=== PATIENT | female | born 1970 | race Caucasian/White ===

== ENCOUNTER 2017-01-17 13:01 | Inpatient (IN) | payer BC ==
[~2017-01-17] VITALS: Ht 172.7 cm; Wt 120.5 kg
--- NOTE | ~2017-01-17 | OP ---
PATIENT NAME: DEN PABLO MEDICAL RECORD: [id number] :74 LOCATION:[id number] ADMISSION DATE:01/17/17 SURGEON: JULIANO FRANCES MD DATE OF OPERATION: 01/18/2017 PREOPERATIVE DIAGNOSES: Acute appendicitis with localized peritonitis. POSTOPERATIVE DIAGNOSES: Acute appendicitis with localized peritonitis. PROCEDURE: Laparoscopic appendectomy. SURGEON: Juliano Frances MD REPORT OF PROCEDURE: The patient's abdomen was prepped and draped in sterile fashion. A cutdown was made on the superior aspect of the umbilicus, 0 Vicryls were placed in the fascia bilaterally and the fascia was incised with 15-blade. I then bluntly entered the peritoneal cavity and placed a 12-mm Carla port. Under direct visualization, a 5 mm trocar was placed in the left lower quadrant and another was placed in the suprapubic region. The appendix was easily visualized and elevated. There were some inflammatory changes present with no sign of any gangrene, necrosis or abscess pockets to cause concern for perforation. The base of the appendix was found and a window was made between the mesoappendix near the cecum. A 45 blue load Endo-DEXTER stapler was used to transect the base of the appendix. The mesoappendix was then transected with the 45 white load Endo-DEXTER stapler. The appendix was placed into an Endo Catch bag. Any bleeding from the staple line was treated with electrocautery. At this point, we irrigated out the abdomen and assured there was no sign of any bleeding. We inspected the patient's pelvis and the patient had a right ovary present, which appeared to be normal and there was some hydrosalpinx on the right side. At this point, the ports and insufflation were then removed. The appendix was taken out through the umbilicus. The umbilical fascia was closed with interrupted 0 Vicryls times 3. The wounds were irrigated out with normal saline and infused with 10 mL of 0.25% Marcaine with epinephrine. The skin incisions were all closed with subcutaneous 5-0 Monocryl and dressed appropriately. COMPLICATIONS: None. CONDITION: Stable. ANESTHESIA: General endotracheal and local. BLOOD LOSS: Minimal. TRANSINT:[id number] Voice Confirmation ID: [id number] DOCUMENT ID: [id number] JULIANO FRANCES MD CC: JG COLE DO [id number] DICTATION DATE: 01/18/17 0943 STEEP TENDER: 01/18/17 1140 ADM IN [facility] [address] [id number]
[~2017-01-17 13:01] MED LIST: CLARITIN 10 MG10 MG PO; LISINOPRIL5 MG; SYNTHROID50 MCG PO
[2017-01-17] MEDS ORDERED: PHENADOZ12.5 MG/SU (16:24)
[2017-01-17 16:26] VITALS: BP 172/94; Ht 172.7 cm; Wt 120.5 kg
--- NOTE | 2017-01-17 16:43 | NUR ---
PT AOX4 RESP EVEN AND NONLABORED PT C/O PAIN OF 4 IN ABDOMEN.
[2017-01-17 18:54] LABS: BASOPHILS 0.4 % (0-2); EOSINOPHILS 1.8 % (0-7); HEMATOCRIT 38.5 % (36.0-48.0); HEMOGLOBIN 12.8 g/dL (12-16); IMMATURE GRANULOCYTES 0.2 % (0-5); LYMPHOCYTES 28.4 % (15-50); MCH 30.8 pg (26.0-34.0); MCHC 33.2 g/dL (31.0-37.0); MCV 92.5 fL (80.0-100.0); MEAN PLATELET VOLUME 11.5 fL (7.4-10.4); MONOCYTES 8.2 % (2-11); RBC 4.16 10x6/uL (4.00-5.40); RDW 12.2 % (11.5-14.5); WBC 8.5 10x3/uL (4.8-10.8)
[2017-01-17 18:57] LABS: PLATELET COUNT 235 10x3/uL (130-400)
[2017-01-17 19:08] LABS: APTT 29.4 SECONDS (22.8-39.4); INR 1.06 (0.85-1.17); PROTIME 13.6 SECONDS (11.6-15.0)
[2017-01-17 19:12] LABS: ALBUMIN 3.5 g/dL (3.4-5.0); ALKALINE PHOSPHATASE 67 U/L (46-116); ALT (SGPT) 26 U/L (10-68); BILIRUBIN - TOTAL 1.07 mg/dL (0.2-1.3); CALC OSMOLALITY 272 mosm/kg (275-300); CALCIUM 8.5 mg/dL (8.5-10.1); CHLORIDE - SERUM 102 mmol/L (98-107); CREATININE - SERUM 0.6 mg/dL (0.6-1.3); GLUCOSE 119 mg/dL (74-106); POTASSIUM - SERUM 3.6 mmol/L (3.5-5.1); PROTEIN - SERUM 7.2 g/dL (6.4-8.2); SODIUM 137 mmol/L (136-145); UREA NITROGEN 6 mg/dL (7-18); eGFR NON AFRICAN AMERICAN > 90 mL/min (90-120)
--- NOTE | 2017-01-17 19:28 | NUR ---
PT WAS MOVED FROM 2206 TO 2215, PT IS VISITING WITH FAMILY AND FRIENDS. BED IN LOW POSITION, CALL LIGHT IN REACH NO SIGNS OF DISTRESS. WILL CONTINUE TO MONITOR PT PAIN LEVEL AND CONTINUE WITH PLAN OF CARE
[2017-01-17 20:00] VITALS: BP 150/80
--- NOTE | 2017-01-17 21:50 | NUR ---
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 THE PAIN IS MORE LIKE CRAMPING PT STATED. BED IN LOW POSITION, ASKED TO NOT BE DISTURBED FOR MIDNIGHT VITALS, RELAYED MESSAGE TO [place]. WILL CONTINUE WITH CARE
[2017-01-18 04:00] VITALS: BP 135/69
[2017-01-18 05:12] LABS: BASOPHILS 0.4 % (0-2); EOSINOPHILS 4.1 % (0-7); HEMATOCRIT 37.2 % (36.0-48.0); HEMOGLOBIN 12.2 g/dL (12-16); IMMATURE GRANULOCYTES 0.2 % (0-5); MCHC 32.8 g/dL (31.0-37.0); MEAN PLATELET VOLUME 10.9 fL (7.4-10.4); MONOCYTES 10.2 % (2-11); NEUTROPHILS 53.1 % (40-80); PLATELET COUNT 242 10x3/uL (130-400); RBC 3.93 10x6/uL (4.00-5.40); RDW 12.2 % (11.5-14.5); WBC 5.6 10x3/uL (4.8-10.8)
[2017-01-18 05:13] LABS: MCV 94.7 fL (80.0-100.0)
[2017-01-18 05:34] LABS: CALC OSMOLALITY 282 mosm/kg (275-300); CALCIUM 8.1 mg/dL (8.5-10.1); CARBON DIOXIDE 24.7 mmol/L (21.0-32.0); CHLORIDE - SERUM 109 mmol/L (98-107); CREATININE - SERUM 0.6 mg/dL (0.6-1.3); GLUCOSE 100 mg/dL (74-106); POTASSIUM - SERUM 4.1 mmol/L (3.5-5.1); SODIUM 143 mmol/L (136-145); UREA NITROGEN 6 mg/dL (7-18); eGFR NON AFRICAN AMERICAN > 90 mL/min (90-120)
--- NOTE | 2017-01-18 05:52 | NUR ---
PATIENT SITTING UP IN BED WITH EYES OPEN. NO COMPLAINTS OR SIGNS OF DISTRESS. CALL LIGHT WITHIN REACH.
--- NOTE | 2017-01-18 07:13 | NUR ---
REPORT RECEIVED FROM UTILITY LOCATOR NURSE. CALL LIGHT IN REACH.
--- NOTE | 2017-01-18 08:20 | NUR ---
TO OR VIA BED.
--- NOTE | 2017-01-18 08:24 | NUR ---
OFF FLOOR TO SURGERY VIA BED. FAMILY TO WAITING ROOM.
[2017-01-18 08:32] VITALS: BP 141/73
--- NOTE | 2017-01-18 09:55 | NUR ---
0855 PATIENTS WEDDING RING TAKEN OFF IN HOLDING AREA AND TAKEN OUT TO TESS PABLO. THERE WAS TWO PIECES TO HER WEDDING BAND AND BOTH WERE GIVEN TO , SUZANNA.
[2017-01-18 10:30] VITALS: BP 145/74
--- NOTE | 2017-01-18 10:30 | NUR ---
RECEIVED BACK TO ROOM 2216 FROM [facility]. O2 @ 2L PER NC. RESTING WITH EYES CLOSED. RESP EVEN AND UNLABORED. CALL LIGHT IN REACH.
--- NOTE | 2017-01-18 12:05 | NUR ---
NO NEEDS VOICED AT THIS TIME. CALL LIGHT IN REACH.
[2017-01-18 12:09] VITALS: BP 134/77
--- NOTE | 2017-01-18 13:30 | NUR ---
RESTING WITH EYES CLOSED. RESP EVEN AND UNLABORED. CALL LIGHT IN REACH. AT BEDSIDE. CALL LIGHT IN REACH.
--- NOTE | 2017-01-18 15:58 | NUR ---
PATIENT VOIDED BUT NOW VOMITING. ZOFRAN 4 MG SIVP. O2 WEANED OFF. WILL CONTINUE TO MONITOR
--- NOTE | 2017-01-18 16:10 | NUR ---
Patient Name: DEN PABLO Admission Status: Elective Accout number: [id number] Admission Date: 01-17-2017 : 1970 Admission Diagnosis:ACUTE APPENDICITIS WITH LOCALIZED PERITONITIS Attending: THAI FRANCES Current LOS: 1 Anticipated DC Date: 01-18-2017 Planned Disposition: Home Primary Insurance: [employer] [facility] Discharge Planning Comments: CM MET WITH PATIENT AND SPOUSE (TESS) REGARDING D/C NEEDS AND PLANS. SPOUSE STATED HE WILL DRIVE THE PATIENT HOME AT DISCHARGE AND THEY HAVE NO STEPS OR STAIRS AT HIS HOME. PATIENT IS INDEPENDENT WITH HER CARE AND HAS A CANE AND SHOWER CHAIR AT HOME. PATIENTS PCP IS DR. COLE AND PHARMACY IS [facility]. ON [address] PATIENTS SPOUSE STATED THEY DID NOT WANT HOME HEALTH. CM WILL CONTINUE TO FOLLOW PATIENT WITH D/C NEEDS AND PLANS. PCP DR. KELSEY VALDES [facility] [phone] TESS (SPOUSE) [phone] Stoneworking Sander: Yolande Haque Is the patient Alert and Oriented? Yes 0 * How many steps to enter\exit or inside your home? 0 0 * PCP DR. COLE 0 * Pharmacy [facility]. ON [address] 0 * Preadmission Environment Home with Family 0 * ADLs Independent 0 * Equipment Cane Shower Chair 0 * List name and contact numbers for known caregivers / representatives who currently or will assist patient after discharge: TESS (SPOUSE) [phone] 0 * Community resources currently utilized None 0 * Additional services required to return to the preadmission environment? Yes 0 * Can the patient safely return to the preadmission environment? Yes 0 * Has this patient been hospitalized within the prior 30 days at any hospital? No 0 Grand Total: 0
[2017-01-18] MEDS ORDERED: ULTRAM50 MG PO (16:25)
[2017-01-18] MEDS ORDERED: PHENERGAN25 M1 PO (16:28)
[2017-01-18 16:44] VITALS: BP 134/79
--- NOTE | 2017-01-18 17:56 | NUR ---
KAILEE IVPB. SCOPOLAMINE PATCH APPLIED BEHIND TO LEFT EAR.
--- NOTE | 2017-01-18 19:13 | NUR ---
REFUSED LOVENOX. STATES SHE HAS EATEN JELLO AND WILL TRY SOME LIQIOD. REPORT GIVEN TO GREG JAMIL.
[2017-01-18 20:00] VITALS: BP 146/84; BP 147/49
--- NOTE | 2017-01-18 20:21 | NUR ---
PATIENT REQUESTED TO BE DISCHARGED. STATED THAT SHE HAD JELLO AROUND 1900 AND HAS HAD NO NAUSEA SINCE THEN.
--- NOTE | 2017-01-18 20:46 | NUR ---
WENT OVER DISCHARGE INSTRUCTIONS WITH PATIENT AT BEDSIDE VERBALLY AND WRITTENLY. GAVE 2 PRESCRIPTIONS, ULTRAM AND PHENERGAN, THAT WERE PRINTED AND SIGNED BY . 20G PIV IN LEFT HAND D/C WITH CATH INTACT. BICYCLE SUBASSEMBLER WILL TAKE PATIENT DOWN WITH VIA WHEEL CHAIR FOR DICHARGING HOME. ALL QUESTIONS ANSWERED AT BEDSIDE. NO NEEDS NOTED.
== END 2017-01-18 20:52 | disposition home or self-care (01) | DRG 340 ==
LOC: D.CT 13:01 → D.MS 15:24
PROVIDERS: Surgery; ADMIT Family Medicine
PROC: 0DTJ4ZZ Resection of Appendix, Percutaneous Endoscopic Approach (ICD-10-PCS; principal; 2017-01-17)
DX: K35.3 Acute appendicitis with localized peritonitis (principal)